=== PATIENT | female | born 1975 | race Caucasian/White ===

== ENCOUNTER 2018-08-24 08:22 | Emergency (ER) | payer MEDICAID ==
[2018-08-24 08:23] VITALS: BMI 21.3
[2018-08-24 08:46] VITALS: TEMP 98.7
--- NOTE | 2018-08-24 09:49 | ED PDOC ---
Arrival/HPI - General Chief Complaint: Weakness/Neurological Deficit Time Seen by Provider: 08/24/18 09:23 Historian: Patient - History of Present Illness Narrative History of Present Illness (Text): 08/24/18 09:50 43 year old female, whose past medical history includes frontal lobe tumor, herniated disc, and a cholecystectomy, presents to the emergency department complaining of dizziness. Patient notes associated generalized weakness, generalized tremors, headache, vision changes, nausea, and abdominal pain. She saw her PMD previously and he prescribed her fioricet and steroids. Patient denies fevers, chills, chest pain, shortness of breath, dyspnea on exertion, cough, vomiting, diarrhea, back pain, neck pain, or any other complaint. PMD: Dr. Juan J Brown Time/Duration: < week Symptom Onset: Gradual Symptom Course: Unchanged Activities at Onset: Light Context: Home Past Medical History - Provider Review Nursing Documentation Reviewed: Yes - Infectious Disease Hx of Infectious Diseases: None - Neurological Other/Comment: tumor in the frontal lobe - Musculoskeletal/Rheumatological Hx Back Pain: Yes Hx Herniated Disk: Yes - Psychiatric Hx Substance Use: No - Surgical History Hx Cholecystectomy: Yes - Anesthesia Hx Anesthesia: Yes Hx Anesthesia Reactions: No Hx Malignant Hyperthermia: No Family/Social History - Physician Review Nursing Documentation Reviewed: Yes Family/Social History: No Known Family HX Smoking Status: Never Smoked Hx Alcohol Use: Yes Hx Substance Use: No Allergies/Home Meds Allergies/Adverse Reactions: Allergies No Known Allergies Allergy (Verified 07/03/17 17:04) Home Medications: Home Meds Medication Instructions Recorded Confirmed Simvastatin 1 tab PO HS 06/15/15 10/19/16 Review of Systems - Physician Review All systems were reviewed & negative as marked: Yes - Review of Systems Constitutional: Other (generalized weakness and tremors). absent: Fevers Eyes: Vision Changes Respiratory: absent: SOB, Cough Cardiovascular: absent: Chest Pain Gastrointestinal: Abdominal Pain, Nausea. absent: Diarrhea, Vomiting Genitourinary Female: absent: Frequency Musculoskeletal: absent: Back Pain, Neck Pain Neurological: Headache, Dizziness Physical Exam Vital Signs Reviewed: Yes Vital Signs Temp Pulse Resp BP Pulse Ox 08/24/18 08:23 98.7 F 73 18 129/86 99 Temperature: Afebrile Blood Pressure: Normal Pulse: Regular Respiratory Rate: Normal Appearance: Positive for: Well-Appearing, Non-Toxic, Comfortable Pain Distress: None Mental Status: Positive for: Alert and Oriented X 3 - Systems Exam Head: Present: Atraumatic, Normocephalic Pupils: Present: PERRL Extroacular Muscles: Present: EOMI Conjunctiva: Present: Normal Mouth: Present: Moist Mucous Membranes Neck: Present: Normal Range of Motion Respiratory/Chest: Present: Clear to Auscultation, Good Air Exchange. No: Respiratory Distress, Accessory Muscle Use Cardiovascular: Present: Regular Rate and Rhythm, Normal S1, S2. No: Murmurs Abdomen: Present: Tenderness (epigastric tenderness). No: Distention, Peritoneal Signs Back: Present: Normal Inspection Upper Extremity: Present: Normal Inspection. No: Cyanosis, Edema Lower Extremity: Present: Normal Inspection. No: Edema Neurological: Present: GCS=15, CN II-XII Intact, Speech Normal (speaking in full sentences) Skin: Present: Warm, Dry, Normal Color. No: Rashes Psychiatric: Present: Alert, Oriented x 3, Normal Insight, Normal Concentration Medical Decision Making ED Course and Treatment: 08/24/18 09:56 Impression: 43 year old female who presents to the emergency department complaining dizziness. Differential Diagnosis included but are not limited to: orthrostatic hypotension vertigo thyroid disorder Plan: -- Head cT w/o contrast -- EKG -- Labs -- Chest X-ray -- Reglan -- IV fluids -- POC uriine test -- Influenza A B -- Reassess and disposition Prior Visits: Notes and results from previous visits were reviewed. Progress Notes: - Lab Interpretations I have reviewed the lab results: Yes - RAD Interpretation Narrative RAD Interpretations (Text): 08/24/18 10:50 Chest X-ray reviewed by radiologist, shows: IMPRESSION: No active disease. 08/24/18 12:[address] reviewed by radiologist, shows: IMPRESSION: Nonacute head CT although incidental left sphenoid sinusitis is encountered. Radiology Orders: 08/24/18 09:26 CHEST PORTABLE [RAD] Stat Electrician Supervisor Airplane: Radiologist - EKG Interpretation EKG Interpretation (Text): 08/24/18 14:32 EKG performed at 08:53 reviewed by me, shows: NSR at 69bpm with no ST elevations and no T wave inversions. Interpreted by ED Physician: Yes Type: 12 lead EKG - Scribe Statement The provider has reviewed the documentation as recorded by the Scribe Tahira Rajput Provider Scribe Attestation: All medical record entries made by the Scribe were at my direction and personally dictated by me. I have reviewed the chart and agree that the record accurately reflects my personal performance of the history, physical exam, medical decision making, and the department course for this patient. I have also personally directed, reviewed, and agree with the discharge instructions and disposition. Disposition/Present on Arrival - Present on Arrival Any Indicators Present on Arrival: No History of DVT/PE: No History of Uncontrolled Diabetes: No Urinary Catheter: No History of Decub. Ulcer: No History Surgical Site Infection Following: None - Disposition Have Diagnosis and Disposition been Completed?: Yes Diagnosis: Vertigo, Sinusitis Disposition: HOME/ ROUTINE Disposition Time: 13:22 Patient Plan: Discharge Condition: IMPROVED Discharge Instructions (ExitCare): Vertigo (a Type of Dizziness), Sinusitis, Adult (DC), Sinus Headache (DC) Print Language: WOLOF Additional Instructions: All medical record entries made by the Scribe were at my direction and personally dictated by me. I have reviewed the chart and agree that the record accurately reflects my personal performance of the history, physical exam, medical decision making, and the department course for this patient. I have also personally directed, reviewed, and agree with the discharge instructions and disposition. Please take medications as prescribed Try to schedule an appointment with the neurologist [facility] Prescriptions: Meclizine [Antivert] 12.5 mg PO PRN PRN #12 tab PRN Reason: Nausea/Vomiting Methylprednisolone [Medrol Dose Pack (21 tabs)] 4 mg PO DAILY #21 mg Metoclopramide HCl [Reglan] 10 mg PO PRN PRN #12 tablet PRN Reason: Dizziness Naproxen 500 mg PO Q6H #12 tab Referrals: Juan J Brown MD [Primary Care Provider] - Follow up with primary Steve Bronson MD [Staff Provider] - Follow up with primary Forms: [facility] (Italian), WORK NOTE
[2018-08-24] MEDS ORDERED: Sodium Chloride 0.9% 1,000 ML IV STA (09:59)
[2018-08-24 10:07] VITALS: RESP 16; O2SAT 98
[2018-08-24 10:13] LABS: BASO # 0.02 K/mm3 (0.0-2.0); BASO % 0.4 % (0.0-3.0); EOS # 0.1 (0.0-0.7); EOS % 1.3 % (1.5-5.0); HEMOGLOBIN 11.8 g/dL (12.0-16.0); LYMPH # 1.6 (1.2-3.4); LYMPH % 35.2 % (22.0-35.0); MEAN CELL VOLUME 78.6 fl (80.0-105.0); MEAN CORPUSCULAR HEMOGLOBIN 25.1 pg (25.0-35.0); MEAN CORPUSCULAR HGB CONC 31.9 g/dl (31.0-37.0); MONO # 0.3 (0.1-0.6); MONO % 6.6 % (1.0-6.0); RBC 4.71 10^6/uL (3.5-6.1); RED CELL DISTRIBUTION WIDTH 14.5 % (11.5-14.5); WHITE BLOOD COUNT 4.5 10^3/uL (4.5-11.0)
[2018-08-24 10:22] LABS: ALB/GLOB RATIO 1.3 (1.1-1.8); ALBUMIN 4.4 g/dL (3.0-4.8); ALT/SGPT 12 U/L (7-56); AST/SGOT 23 U/L (14-36); BLOOD UREA NITROGEN 15 mg/dL (7-21); CALCIUM 9.1 mg/dL (8.4-10.5); GFR NON-AFRICAN AMERICAN > 60
--- NOTE | 2018-08-24 10:42 | RAD ---
Date of service: 08/24/2018 HISTORY: chills COMPARISON: No prior. FINDINGS: LUNGS: No active pulmonary disease. PLEURA: No significant pleural effusion identified, no pneumothorax apparent. CARDIOVASCULAR: No aortic atherosclerotic calcification present. Normal cardiac size. No pulmonary vascular congestion. OSSEOUS STRUCTURES: No significant abnormalities. VISUALIZED UPPER ABDOMEN: Normal. OTHER FINDINGS: None. IMPRESSION: No active disease.
--- NOTE | 2018-08-24 11:13 | CT ---
Date of service: 08/24/2018 PROCEDURE: CT HEAD WITHOUT CONTRAST. HISTORY: headache w/ dizziness h/o pituatary adenoma COMPARISON: None available. TECHNIQUE: Axial computed tomography images were obtained through the head/brain without intravenous contrast. Radiation dose: Total exam DLP = 912.96 mGy-cm. This CT exam was performed using one or more of the following dose reduction techniques: Automated exposure control, adjustment of the mA and/or kV according to patient size, and/or use of iterative reconstruction technique. FINDINGS: HEMORRHAGE: No intracranial hemorrhage. BRAIN: Normal barrios-white matter differentiation and density are appreciated throughout the cerebrum and cerebellum with the brainstem appearing unremarkable as well. There is no mass effect. There is no suspicious extra-axial fluid collection and the midline brain anatomy appears diffusely unremarkable. Multifocal extensive calcification of the falx is appreciated. VENTRICLES: Unremarkable. No hydrocephalus. CALVARIUM: Unremarkable. PARANASAL SINUSES: Incidental left sphenoid sinusitis noted. MASTOID AIR CELLS: Unremarkable as visualized. No inflammatory changes. OTHER FINDINGS: None. IMPRESSION: Nonacute head CT although incidental left sphenoid sinusitis is encountered.
--- NOTE | 2018-08-24 13:16 | CARD ---
APPROVED REPORT Date of service: 08/24/2018 EKG Measurement Heart [id number] <Conclusion> Sinus rhythm with short OR Otherwise normal ECG
[2018-08-24 13:38] VITALS: BP 112/75; PULSE 55
== END 2018-08-24 13:47 | disposition home or self-care (01) ==
LOC: ED 08:22
DX: R42 Dizziness and giddiness (principal); J32.9 Chronic sinusitis, unspecified
CPT/HCPCS: 70450; 71045; 80053; 81025; 85025; 87804; 93005; 96374; 96375; 99285; J1885; J2765; J7030

== ENCOUNTER 2018-09-16 10:37 | Outpatient (CLI) | payer MEDICAID | END 2018-09-16 10:38 | disposition home or self-care (01) | LOC: LAB 10:37 ==

== ENCOUNTER 2018-09-19 12:27 | Outpatient (CLI) | payer MEDICAID | END 2018-09-19 12:28 | disposition home or self-care (01) | LOC: LAB 12:27 ==

== ENCOUNTER 2018-11-14 08:28 | Outpatient (CLI) | payer MEDICAID | END 2018-11-14 08:29 | disposition home or self-care (01) | LOC: RAD 08:28 ==